=== PATIENT | male | born 1970 | race Caucasian/White ===

== ENCOUNTER 2017-06-20 06:56 | Emergency (ER) | payer MEDICAID ==
[~2017-06-20] VITALS: Ht 175.3 cm; Wt 98.0 kg
[~2017-06-20 06:56] MED LIST: DOXY150C OR; NAPR-571 PO; ZITHTAB PO; ZOVI400T15 PO
[2017-06-20 07:01] VITALS: BP 139/79; PULSE 75; RESP 16; TEMP 97.6; O2SAT 98
[2017-06-20 07:16] VITALS: BP 133/62; PULSE 64; RESP 15; O2SAT 98
[2017-06-20] MEDS ORDERED: SODIUM CHLOR 0.9% 1000 ML INJ 1,000 ML IV SCH ×2 (07:24→07:36)
--- NOTE | 2017-06-20 07:26 | PD ---
HPI Chief Complaint: Flank/Kidney Pain Time Seen by Provider: 07:24 Travel History International Travel<30 days: No Contact w/Intl Traveler<30days: No Traveled to known affect area: No History of Present Illness HPI 46-year-old male with history of previous kidney stones, presents to the ER today with sudden onset of right flank pains starting at 2 AM today. He states is currently a 7 out of 10 and he has been nauseous. He denies any fevers, vomiting, urinary symptoms, or any other symptoms. Modifying Factors: None Associated Signs & Symptoms: Right flank pain Risk Factors: Kidney stone PFSH Past Medical History Diabetes: Yes ("BORDERLINE") Diminished Hearing: No Myocardial Infarction: Yes (May) Past Surgical History Appendectomy: Yes Tympanostomy Tube: Yes Social History Alcohol Use: Yes (history of alcohol abuse - rehabilitation) Tobacco Use: Yes Substance Use: Yes (history of crack cocaine abuse - rehabilitation) Allergies-Medications (Allergen,Severity, Reaction): Coded Allergies: bee venom protein (honey bee) (Unverified Allergy, Severe, 06/20/17) Paper Wasp (Verified Allergy, Unknown, Swelling, 06/20/17) Reported Meds & Prescriptions Reported Meds & Active Scripts Active Motrin Ib (Ibuprofen) 200 Mg Tablet 600 Mg PO QID PRN Review of Systems Except as stated in HPI: all other systems reviewed are Neg Physical Exam Narrative GENERAL: Well-developed middle age white male patient currently in mild distress. Awake and oriented 3. SKIN: Focused skin assessment warm/dry. HEAD: Atraumatic. Normocephalic. EYES: Pupils equal and round. No scleral icterus. No injection or drainage. ENT: No nasal bleeding or discharge. Mucous membranes pink and moist. NECK: Trachea midline. No JVD. CARDIOVASCULAR: Regular rate and rhythm. No murmur appreciated. RESPIRATORY: No accessory muscle use. Clear to auscultation. Breath sounds equal bilaterally. GASTROINTESTINAL: Abdomen soft, mild right lower quadrant tenderness without guarding or rebound, nondistended. Hepatic and splenic margins not palpable. BACK: Right CVA tenderness. No rash. No point tenderness on palpation of the spine. MUSCULOSKELETAL: No obvious deformities. No clubbing. No cyanosis. No edema. NEUROLOGICAL: Awake and alert. No obvious cranial nerve deficits. Motor grossly within normal limits. Normal speech. PSYCHIATRIC: Appropriate mood and affect; insight and judgment normal. Data Data Last Documented VS Vital Signs Date Time Temp Pulse Resp B/P (MAP) Pulse Ox O2 Delivery O2 Flow Rate FiO2 06/20/17 08:33 16 06/20/17 07:16 64 133/62 (85) 98 Room Air 06/20/17 07:01 97.6 Orders Orders Complete Blood Count With Diff (06/20/17 07:24) Comprehensive Metabolic Panel (06/20/17 07:24) Lipase (06/20/17 07:24) Urinalysis - C+S If Indicated (06/20/17 07:24) Ct Abd/Pel W/O Iv Contrast (06/20/17 07:24) Iv Access Insert/Monitor (06/20/17 07:24) Ecg Monitoring (06/20/17 07:24) Oximetry (06/20/17 07:24) Ondansetron Inj (Zofran Inj) (06/20/17 07:30) Sodium Chlor 0.9% 1000 Ml Inj (Ns 1000 M (06/20/17 07:24) Sodium Chloride 0.9% Flush (Ns Flush) (06/20/17 07:30) Ketorolac Inj (Toradol Inj) (06/20/17 07:30) Ondansetron Inj (Zofran Inj) (06/20/17 07:45) Sodium Chlor 0.9% 1000 Ml Inj (Ns 1000 M (06/20/17 07:36) Sodium Chloride 0.9% Flush (Ns Flush) (06/20/17 07:45) Labs Laboratory Tests Test 06/20/17 07:25 06/20/17 08:23 White Blood Count 4.9 TH/MM3 Red Blood Count 4.87 MIL/MM3 Hemoglobin 14.9 GM/DL Hematocrit 42.8 % Mean Corpuscular Volume 87.8 FL Mean Corpuscular Hemoglobin 30.6 PG Mean Corpuscular Hemoglobin Concent 34.9 % Red Cell Distribution Width 12.5 % Platelet Count 177 TH/MM3 Mean Platelet Volume 7.4 FL Neutrophils (%) (Auto) 54.6 % Lymphocytes (%) (Auto) 32.9 % Monocytes (%) (Auto) 8.0 % Eosinophils (%) (Auto) 3.4 % Basophils (%) (Auto) 1.1 % Neutrophils # (Auto) 2.7 TH/MM3 Lymphocytes # (Auto) 1.6 TH/MM3 Monocytes # (Auto) 0.4 TH/MM3 Eosinophils # (Auto) 0.2 TH/MM3 Basophils # (Auto) 0.1 TH/MM3 CBC Comment DIFF FINAL Differential Comment Blood Urea Nitrogen 14 MG/DL Creatinine 1.17 MG/DL Random Glucose 105 MG/DL Total Protein 7.0 GM/DL Albumin 3.6 GM/DL Calcium Level 8.9 MG/DL Alkaline Phosphatase 64 U/L Aspartate Amino Transf (AST/SGOT) 13 U/L Alanine Aminotransferase (ALT/SGPT) 28 U/L Total Bilirubin 0.8 MG/DL Sodium Level 140 MEQ/L Potassium Level 3.6 MEQ/L Chloride Level 107 MEQ/L Carbon Dioxide Level 26.4 MEQ/L Anion Gap 7 MEQ/L Estimat Glomerular Filtration Rate 67 ML/MIN Lipase 102 U/L Urine Color YELLOW Urine Turbidity CLEAR Urine pH 6.0 Urine Specific [place] 1.029 Urine Protein TRACE mg/dL Urine Glucose (UA) NEG mg/dL Urine Ketones NEG mg/dL Urine Occult Blood NEG Urine Nitrite NEG Urine Bilirubin NEG Urine Urobilinogen 4.0 MG/DL Urine Leukocyte Esterase NEG Urine RBC LESS THAN 1 /hpf Urine WBC 1 /hpf Urine Mucus FEW /lpf Microscopic Urinalysis Comment CULT NOT INDICATED MDM Medical Decision Making Medical Screen Exam Complete: Yes Emergency Medical Condition: Yes Medical Record Reviewed: Yes Interpretation(s) Laboratory Tests Test 06/20/17 07:25 06/20/17 08:23 Aspartate Amino Transf (AST/SGOT) 13 U/L (15-37) Estimat Glomerular Filtration Rate 67 ML/MIN (>89) Urine Urobilinogen 4.0 MG/DL (LESS THAN Urine Mucus FEW /lpf (OCC) Last 24 hours Impressions Abdomen/Pelvis CT 06/20/17 0724 Signed Impressions: Service Date/Time: Tuesday, June 20, 2017 07:48 - CONCLUSION: 1. Bilateral nonobstructing sub-centimeter renal calculi. No ureteric stones or hydronephrosis to explain current clinical symptoms. 2. Diverticular disease of the descending and sigmoid colon without diverticulitis. 3. A 1.8 cm left paraumbilical anterior abdominal wall hernia which only contains fat. Jorge Brito MD Differential Diagnosis Right flank pains: renal colic versus pyelonephritis versus appendicitis Narrative Course Lab work and CAT scan did not show any signs of acute processes. At this point , symptoms could be secondary to renal colic not spotted on CAT scan or could be musculoskeletal. I do not suspect other acute processes at this point. My plan would be to release the patient would follow-up to primary care physician. We will give him further symptomatically relief or pain. Return for any worsening in symptoms as needed. The plan has been discussed with him and he states understanding. Diagnosis Primary Impression: Right flank pain Med/Other Pt SpecificInfo: Prescription(s) given Scripts Ondansetron Odt (Zofran Odt) 4 Mg Tab 4 MG SL Q6HR Y for Nausea/Vomiting, #7 TAB 0 Refills Prov: Sukumar Pascal MD 06/20/17 Ibuprofen (Motrin Ib) 200 Mg Tablet 600 MG PO QID Y for PAIN SCALE 1 TO 10, #28 Prov: Sukumar Pascal MD 06/20/17 Disposition: 01 DISCHARGE HOME Condition: Stable Sukumar Pascal MD Jun 20, 2017 07:26
[2017-06-20] MEDS ORDERED: KETOROLAC TROMETHAMINE 30 MG/ML (IVP) VIAL IVP ONE (07:30)
[2017-06-20] MEDS ORDERED: ONDANSETRON HCL 4 MG/2 ML VIAL IVP ONE ×2 (07:30→07:45)
[2017-06-20] MEDS ORDERED: SODIUM CHLORIDE 0.9% FLUSH 10 ML FLUSH IV FLUSH PRN ×2 (07:30→07:45)
[2017-06-20 07:41] LABS: AUTOMATED NEUTROPHIL # 2.7 TH/MM3 (1.8-7.7); BASOPHIL # 0.1 TH/MM3 (0-0.2); BASOPHIL % 1.1 % (0.0-2.0); EOSINOPHIL # 0.2 TH/MM3 (0-0.4); EOSINOPHIL % 3.4 % (0.0-4.0); HEMATOCRIT 42.8 % (39.0-51.0); HEMO FLAGS DIFF FINAL; LYMPH % 32.9 % (9.0-44.0); LYMPHOCYTE # 1.6 TH/MM3 (1.0-4.8); MEAN CELL VOLUME 87.8 FL (80.0-100.0); MEAN CORPUSCULAR HEMOGLOBIN 30.6 PG (27.0-34.0); MEAN CORPUSCULAR HGB CONC 34.9 % (32.0-36.0); NEUT % 54.6 % (16.0-70.0); PLATELET COUNT 177 TH/MM3 (150-450); RED BLOOD COUNT 4.87 MIL/MM3 (4.50-5.90); RED CELL DISTRIBUTION WIDTH 12.5 % (11.6-17.2); WHITE BLOOD COUNT 4.9 TH/MM3 (4.0-11.0)
[2017-06-20 08:01] LABS: ALT (GPT) 28 U/L (12-78); ANION GAP 7 MEQ/L (5-15); AST (GOT) 13 U/L (15-37); BICARBONATE 26.4 MEQ/L (21.0-32.0); BLOOD UREA NITROGEN 14 MG/DL (7-18); CHLORIDE 107 MEQ/L (98-107); GLOMERULAR FILTRATION RATE 67 ML/MIN (>89); POTASSIUM 3.6 MEQ/L (3.5-5.1); SODIUM (NA) 140 MEQ/L (136-145)
[2017-06-20 08:03] LABS: ALKALINE PHOSPHATASE 64 U/L (45-117); TOTAL BILIRUBIN ADULT 0.8 MG/DL (0.2-1.0)
--- NOTE | 2017-06-20 08:25 | RADRPT ---
EXAM DATE/TIME: 06/20/2017 07:48 [facility] COMPARISON: No previous studies available for comparison. INDICATIONS : Right flank pain ORAL CONTRAST: No oral contrast ingested. RADIATION DOSE: 8.47 CTDIvol (mGy) MEDICAL HISTORY : None SURGICAL HISTORY : None. ENCOUNTER: Initial ACUITY: 1 day PAIN SCALE: 7/10 LOCATION: Right flank TECHNIQUE: Volumetric scanning of the abdomen and pelvis was performed. Using automated exposure control and ad justment of the mA and/or kV according to patient size, radiation dose was kept as low as reasonably achievable to obtain optimal diagnostic quality images. DICOM format image data is available electro nically for review and comparison. FINDINGS: LOWER LUNGS: The visualized lower lungs are clear. LIVER: Homogeneous density without lesion. There is no dilation of the biliary tree. No calcified gallston es. SPLEEN: Normal size without lesion. PANCREAS: Within normal limits. KIDNEYS: Normal in size and shape. There are bilateral, multiple, sub-centimeters nonobstructing renal calculi . No ureteric stones or obstruction. ADRENAL GLANDS: Within normal limits. VASCULAR: There is no aortic aneurysm. BOWEL/MESENTERY: The stomach, small bowel, and colon demonstrate no acute abnormality. There is no free intraperitone al air or fluid. Diverticular disease involves the descending and sigmoid colon without diverticuliti s ABDOMINAL WALL: Very small, left-sided paraumbilical 1.8 cm hernia which only contains fat RETROPERITONEUM: There is no lymphadenopathy. BLADDER: No wall thickening or mass. REPRODUCTIVE: Within normal limits. INGUINAL: There is no lymphadenopathy or hernia. MUSCULOSKELETAL: Within normal limits for patient age. CONCLUSION: 1. Bilateral nonobstructing sub-centimeter renal calculi. No ureteric stones or hydronephrosis to exp jennifer current clinical symptoms. 2. Diverticular disease of the descending and sigmoid colon without diverticulitis. 3. A 1.8 cm left paraumbilical anterior abdominal wall hernia which only contains fat. Jorge Brito MD on June 20, 2017 at 8:18 Board Certified Radiologist. This report was verified electronically.
[2017-06-20 08:33] VITALS: RESP 16
[2017-06-20 08:51] LABS: BLOOD, URINE NEG (NEG); GLUCOSE,URINE NEG (NEG); KETONE, URINE NEG (NEG); MUCUS URINE FEW /lpf (OCC); NITRITE,URINE NEG (NEG); URINE COLOR YELLOW (YELLW/STRAW)
[2017-06-20 08:53] LABS: COMMENT (UR) CULT NOT INDICATED; CULTURE IF INDICATED CULT NOT INDICATED
[2017-06-20] MEDS ORDERED: IBUP-1129 PO (09:11)
[2017-06-20] MEDS ORDERED: ZOFR4TAB3 SL (09:14)
== END 2017-06-20 09:23 | disposition home or self-care (01) ==
LOC: NEPE 06:56
DX: R10.9 Unspecified abdominal pain (principal); N20.0 Calculus of kidney; K42.9 Umbilical hernia without obstruction or gangrene; R73.03 Prediabetes; I25.2 Old myocardial infarction; Z72.0 Tobacco use; Z87.442 Personal history of urinary calculi
CPT/HCPCS: 74176; 80053; 81001; 83690; 85025; 96361; 96374; 96375; 99285; J1885; J2405; J7030

== ENCOUNTER 2017-07-21 10:50 | Emergency (ER) | payer MEDICAID ==
[~2017-07-21] VITALS: Ht 175.3 cm; Wt 95.0 kg
[~2017-07-21 10:50] MED LIST changes: -DOXY150C OR; +IBUP-1129 PO; -NAPR-571 PO; -ZITHTAB PO; +ZOFR4TAB3 SL; -ZOVI400T15 PO
[2017-07-21 10:51] VITALS: BP 149/89; PULSE 64; RESP 15; TEMP 98.9; O2SAT 97
[2017-07-21] MEDS ORDERED: SODIUM CHLOR 0.9% 1000 ML INJ 1,000 ML IV SCH (11:15)
[2017-07-21 11:22] VITALS: BP 119/89; PULSE 59; RESP 18; O2SAT 98
--- NOTE | 2017-07-21 11:23 | PD ---
HPI Chief Complaint: Abdominal Pain Time Seen by Provider: 11:18 Travel History International Travel<30 days: No Contact w/Intl Traveler<30days: No Traveled to known affect area: No History of Present Illness HPI This is a 46-year-old male who presents for evaluation of generalized arthralgias and myalgias. Symptoms started 3-4 months ago. He reports an aching sensation in his joints and muscles as well as lower back pain which has been constant. He reports a discomfort in his head which he does not consider painful. Endorses occasional lower abdominal pain but none currently. He reports that he quit drinking in April of this year and symptoms seemed to have started after this. He reports unintentional 50 pound weight loss over the past several months by dieting and exercise activities. He denies nausea, vomiting, constipation, fevers, chills, cough, congestion, sore throat, recent travel, current rash. He denies any illicit drug use. He does report that he had dark colored urine in June but this resolved. He was seen here in June for evaluation of flank pain. He had a CT of the abdomen and pelvis revealing some stable renal calculi with no acute abnormality. He reports a history of "fatty liver" but he is otherwise without any significant past medical history. He reports that his primary care physician was in [place] but he has moved here and does not currently have a local primary care physician. No other complaints at this time. [facility] Past Medical History Diabetes: Yes ("BORDERLINE") Diminished Hearing: No Immunizations Current: Yes Myocardial Infarction: Yes (May) Past Surgical History Abdominal Surgery: Yes (HERNIA REPAIR 2014) Appendectomy: Yes Tympanostomy Tube: Yes Social History Alcohol Use: Yes (history of alcohol abuse - rehabilitation) Tobacco Use: Yes (10/17 PPD) Substance Use: Yes (history of crack cocaine abuse - rehabilitation (2010)) Allergies-Medications (Allergen,Severity, Reaction): Coded Allergies: bee venom protein (honey bee) (Unverified Allergy, Severe, 07/21/17) Paper Wasp (Verified Allergy, Unknown, Swelling, 07/21/17) Reported Meds & Prescriptions Reported Meds & Active Scripts Active Zofran Odt (Ondansetron Odt) 4 Mg Tab 4 Mg SL Q6HR PRN Motrin Ib (Ibuprofen) 200 Mg Tablet 600 Mg PO QID PRN Review of Systems Except as stated in HPI: all other systems reviewed are Neg Physical Exam Narrative GENERAL: Well-developed well-nourished male in no acute distress SKIN: Warm and dry. HEAD: Atraumatic. Normocephalic. EYES: Pupils equal and round. No scleral icterus. No injection or drainage. ENT: No nasal bleeding or discharge. Mucous membranes pink and moist. NECK: Trachea midline. No JVD. CARDIOVASCULAR: Regular rate and rhythm. No murmur appreciated. RESPIRATORY: No accessory muscle use. Clear to auscultation. Breath sounds equal bilaterally. GASTROINTESTINAL: Abdomen soft, non-tender, nondistended. Hepatic and splenic margins not palpable. No guarding. No CVA tenderness. MUSCULOSKELETAL: No obvious deformities. No edema in the upper or lower extremities. No joint effusions. NEUROLOGICAL: Awake and alert. No obvious cranial nerve deficits. Motor grossly within normal limits. Normal speech. Data Data Last Documented VS Vital Signs Date Time Temp Pulse Resp B/P (MAP) Pulse Ox O2 Delivery O2 Flow Rate FiO2 07/21/17 11:22 59 18 119/89 (99) 98 Room Air 07/21/17 10:51 98.9 Orders Orders Complete Blood Count With Diff (07/21/17 11:15) Comprehensive Metabolic Panel (07/21/17 11:15) Lipase (07/21/17 11:15) Urinalysis - C+S If Indicated (07/21/17 11:15) Iv Access Insert/Monitor (07/21/17 11:15) Sodium Chlor 0.9% 1000 Ml Inj (Ns 1000 M (07/21/17 11:15) Electrocardiogram (07/21/17 11:15) Creatine Kinase (Cpk) (07/21/17 11:15) Magnesium (Mg) (07/21/17 11:15) CKMB (07/21/17 11:29) CKMB% (07/21/17 11:29) Ketorolac Inj (Toradol Inj) (07/21/17 12:30) Labs Laboratory Tests Test 07/21/17 11:29 07/21/17 11:50 White Blood Count 5.1 TH/MM3 Red Blood Count 5.06 MIL/MM3 Hemoglobin 14.9 GM/DL Hematocrit 44.1 % Mean Corpuscular Volume 87.1 FL Mean Corpuscular Hemoglobin 29.5 PG Mean Corpuscular Hemoglobin Concent 33.9 % Red Cell Distribution Width 12.7 % Platelet Count 178 TH/MM3 Mean Platelet Volume 7.3 FL Neutrophils (%) (Auto) 55.2 % Lymphocytes (%) (Auto) 33.0 % Monocytes (%) (Auto) 7.3 % Eosinophils (%) (Auto) 3.8 % Basophils (%) (Auto) 0.7 % Neutrophils # (Auto) 2.8 TH/MM3 Lymphocytes # (Auto) 1.7 TH/MM3 Monocytes # (Auto) 0.4 TH/MM3 Eosinophils # (Auto) 0.2 TH/MM3 Basophils # (Auto) 0.0 TH/MM3 CBC Comment DIFF FINAL Differential Comment Blood Urea Nitrogen 13 MG/DL Creatinine 1.14 MG/DL Random Glucose 124 MG/DL Total Protein 6.8 GM/DL Albumin 3.7 GM/DL Calcium Level 8.7 MG/DL Magnesium Level 1.9 MG/DL Alkaline Phosphatase 64 U/L Aspartate Amino Transf (AST/SGOT) 20 U/L Alanine Aminotransferase (ALT/SGPT) 29 U/L Total Bilirubin 0.5 MG/DL Sodium Level 139 MEQ/L Potassium Level 4.0 MEQ/L Chloride Level 107 MEQ/L Carbon Dioxide Level 25.9 MEQ/L Anion Gap 6 MEQ/L Estimat Glomerular Filtration Rate 69 ML/MIN Total Creatine Kinase 463 U/L Creatine Kinase MB 2.3 NG/ML Creatine Kinase MB % 0.5 % Lipase 121 U/L Urine Color YELLOW Urine Turbidity CLEAR Urine pH 7.0 Urine Specific [place] 1.009 Urine Protein NEG mg/dL Urine Glucose (UA) NEG mg/dL Urine Ketones NEG mg/dL Urine Occult Blood NEG Urine Nitrite NEG Urine Bilirubin NEG Urine Urobilinogen LESS THAN 2.0 MG/DL Urine Leukocyte Esterase NEG Urine WBC LESS THAN 1 /hpf Urine Amorphous Sediment RARE Urine Bacteria RARE /hpf Microscopic Urinalysis Comment CULT NOT INDICATED MDM Medical Decision Making Medical Screen Exam Complete: Yes Emergency Medical Condition: Yes Medical Record Reviewed: Yes Interpretation(s) ekg sinus bradycardia CBC unremarkable Differential Diagnosis Myositis, rhabdomyolysis, gonococcal arthritis, rheumatoid arthritis, electrolyte abnormality, lupus Narrative Course This is a 46-year-old male previous heavy drinker who has been abstaining from alcohol for the past 3 months he presents complaining of generalized arthralgias and myalgias for the past few months. He reports occasional abdominal pain, none currently and his abdomen is soft and nontender. Physical examination is essentially unremarkable. I reviewed his records. He had similar symptoms for several months in 2011 and he was seen here twice for evaluation at that time. The symptoms spontaneously resolved in 2011 but his current symptoms are similar. Total CK is 463, lab work is otherwise unremarkable. At this point time and have him follow-up with his primary care physician, possible rheumatology referral if symptoms persist. He is agreeable to this plan. 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 Return for any emergent medical conditions. Med/Other Pt SpecificInfo: No Change to Meds Disposition: 01 DISCHARGE HOME Condition: Stable Rajeev Guillen Jul 21, 2017 11:23
[2017-07-21 11:44] LABS: AUTOMATED NEUTROPHIL # 2.8 TH/MM3 (1.8-7.7); BASOPHIL % 0.7 % (0.0-2.0); EOSINOPHIL # 0.2 TH/MM3 (0-0.4); EOSINOPHIL % 3.8 % (0.0-4.0); HEMATOCRIT 44.1 % (39.0-51.0); HEMO FLAGS DIFF FINAL; LYMPHOCYTE # 1.7 TH/MM3 (1.0-4.8); MEAN CELL VOLUME 87.1 FL (80.0-100.0); MEAN CORPUSCULAR HEMOGLOBIN 29.5 PG (27.0-34.0); MEAN CORPUSCULAR HGB CONC 33.9 % (32.0-36.0); MONO % 7.3 % (0.0-8.0); NEUT % 55.2 % (16.0-70.0); PLATELET COUNT 178 TH/MM3 (150-450); RED BLOOD COUNT 5.06 MIL/MM3 (4.50-5.90); RED CELL DISTRIBUTION WIDTH 12.7 % (11.6-17.2); WHITE BLOOD COUNT 5.1 TH/MM3 (4.0-11.0)
[2017-07-21 12:01] LABS: BACTERIA, URINE RARE /hpf; BLOOD, URINE NEG (NEG); COMMENT (UR) CULT NOT INDICATED; CULTURE IF INDICATED CULT NOT INDICATED; GLUCOSE,URINE NEG (NEG); KETONE, URINE NEG (NEG); NITRITE,URINE NEG (NEG); URINE COLOR YELLOW (YELLW/STRAW)
[2017-07-21 12:13] LABS: ALKALINE PHOSPHATASE 64 U/L (45-117); CREATINE KINASE 463 U/L (39-308); TOTAL BILIRUBIN ADULT 0.5 MG/DL (0.2-1.0)
[2017-07-21 12:14] LABS: ALT (GPT) 29 U/L (12-78); ANION GAP 6 MEQ/L (5-15); AST (GOT) 20 U/L (15-37); BICARBONATE 25.9 MEQ/L (21.0-32.0); BLOOD UREA NITROGEN 13 MG/DL (7-18); CHLORIDE 107 MEQ/L (98-107); GLOMERULAR FILTRATION RATE 69 ML/MIN (>89); MAGNESIUM 1.9 MG/DL (1.5-2.5); SODIUM (NA) 139 MEQ/L (136-145)
[2017-07-21 12:29] LABS: CKMB 2.3 NG/ML (0.5-3.6)
[2017-07-21] MEDS ORDERED: KETOROLAC TROMETHAMINE 30 MG/ML (IVP) VIAL IV PUSH ONE (12:30)
--- NOTE | 2017-07-22 05:21 | EKG ---
Date Performed: 07/21/2017 Time Performed: 11:31:28 PTAGE: 46 years EKG: SINUS BRADYCARDIA BORDERLINE ECG NO PREVIOUS TRACING DOCTOR: Stephon Harris Interpretating Date/Time 07/22/2017 05:14:53
== END 2017-07-21 14:20 | disposition home or self-care (01) ==
LOC: NEPC 10:50
DX: M25.50 Pain in unspecified joint (principal); M79.1 Myalgia; R00.1 Bradycardia, unspecified; R73.03 Prediabetes; I25.2 Old myocardial infarction; F17.200 Nicotine dependence, unspecified, uncomplicated; Z79.899 Other long term (current) drug therapy
CPT/HCPCS: 80053; 81001; 82550; 82552; 83690; 83735; 85025; 93005; 99284; J7030